=== PATIENT | female | born 1995 | race Caucasian/White ===

== ENCOUNTER 2023-01-23 09:31 | Outpatient (AMB) | payer OTHER, SELFPAY ==
--- NOTE | 2023-01-23 10:56 | AM.OFFWIN_ITS ---
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 Patient is complaining of a bad occipital headache for the past 3 days. Symptoms started slowly and has gradually worsened. Minimal relief with [id number] medications. No nausea or vomiting. Denies any visual changes. Patient is . [facility] Social History Patient Tobacco Use Status: Never used Tobacco Physical Exam Vital Signs: Last Vital Signs Temp 97.8 F 01/23/23 10:59 Pulse 76 01/23/23 10:59 BP 128/78 01/23/23 10:59 Pulse Ox 98 01/23/23 10:59 Oxygen Delivery Method Room Air 01/23/23 10:59 BMI result Body Mass Index 35.4 Const General: cooperative and healthy appearing Nutritional Appearance: well nourished Orientation/consciousness: patient oriented x3 Limitations: no limitations HEENT Head: Yes normal to inspection Eyes General: appearance normal, both eyes and all related structures Neck Neck: Yes normal visual inspection Chest Chest palpation & inspection: normal palpation of entire chest wall Resp Effort & Inspection: normal respiratory effort Neuro General: patient oriented x3 Assessment & Plan Assessment & Plan (1) Migraine headache: Code(s): G43.909 - Migraine, unspecified, not intractable, without status migrainosus Plan: Mostly vascular etiology. Meloxicam started. If symptoms do not improve to follow-up here. Patient was also given information on the new provider who is acceptingnew patients at this facility. Coding Level of Care Code Est Pt Level 3 (62931) Diagnoses Migraine headache G43.909
[2023-01-23 10:59] VITALS: BP 128/78; PULSE 76; TEMP 36.6; O2SAT 98; BMI 35.4
== END 2023-01-23 11:47 | disposition home or self-care (01) ==
PROVIDERS: Visit Provider Internal Medicine
DX: G43.909 Migraine, unspecified, not intractable, without status migrainosus (principal)
CPT/HCPCS: 99213